=== PATIENT | male | born 1945 | race Hispanic/Latino ===

== ENCOUNTER 2017-12-03 06:07 | Day surgery (SDC) | payer MEDICARE ==
[2017-12-01 12:39] VITALS: BMI 39.2
[2017-12-03 06:50] LABS: BASO # 0.02 K/mm3 (0.0-2.0); BASO % 0.2 % (0.0-3.0); EOS # 0.2 (0.0-0.7); EOS % 2.3 % (1.5-5.0); GRAN # 5.52 (1.4-6.5); GRAN % 67.6 % (50.0-68.0); HEMOGLOBIN 8.7 g/dL (14.0-18.0); LYMPH # 1.8 (1.2-3.4); LYMPH % 22.3 % (22.0-35.0); MEAN CELL VOLUME 59.7 fl (80.0-105.0); MEAN CORPUSCULAR HEMOGLOBIN 18.2 pg (25.0-35.0); MEAN CORPUSCULAR HGB CONC 30.4 g/dl (31.0-37.0); MONO # 0.6 (0.1-0.6); MONO % 7.6 % (1.0-6.0); PLATELET COUNT 193 10^3/uL (120.0-450.0); RBC 4.79 10^6/uL (3.5-6.1); RED CELL DISTRIBUTION WIDTH 17.6 % (11.5-14.5); WHITE BLOOD COUNT 8.2 10^3/ul (4.5-11.0)
[2017-12-03 07:01] LABS: CALCIUM 8.9 mg/dL (8.4-10.5)
[2017-12-03 07:22] LABS: INR 1.09 (0.93-1.08); PARTIAL THROMBOPLASTIN TIME 30.1 Seconds (25.1-36.5); PROTHROMBIN TIME 12.5 SECONDS (9.4-12.5)
[2017-12-03 07:26] VITALS: RESP 18
[2017-12-03] MEDS ORDERED: Lidocaine 2% Inj (20ml) ONE (08:42)
[2017-12-03] MEDS ORDERED: Midazolam 2 MG/2 ML VIAL ONE ×2 (08:42→09:04)
[2017-12-03] MEDS ORDERED: Iohexol 350mgl/ml 50 ML ONE (08:43)
[2017-12-03] MEDS ORDERED: Iodixanol 320 MG/ML 200 ML BOTTLE IV ONE (08:43)
[2017-12-03] MEDS ORDERED: Heparin 2,000 ML IV ONE (08:43)
[2017-12-03] MEDS ORDERED: Iodixanol 320 MG/ML 100 ML BOTTLE IV ONE (08:43)
[2017-12-03] MEDS ORDERED: Iodixanol 320 mg/ml 150 ml Bottle IV ONE (08:51)
[2017-12-03 10:14] VITALS: TEMP 97.4
[2017-12-03] MEDS ORDERED: Sodium Chloride 0.9% 1,000 ML IV SCH (10:15)
--- NOTE | 2017-12-03 11:26 | CARDCATH ---
PROCEDURE DATE: 12/03/2017 HISTORY: The patient is a 71-year-old male who was found to have critical aortic stenosis on an echocardiogram. The patient has previous hypertension as well as history of PTCA and stent in the past. He experiences exertional shortness of breath. No chest pain noted. Because of this, cardiac catheterization was recommended. PROCEDURE: Left heart catheterization with coronary arteriography, left ventriculogram, supra-aortic valvular injection as well as hemodynamic data were recorded. The right femoral artery was cannulated with a 6-Bul[place] sheath. There were no complications. I performed moderate sedation, which included the presence of an independent trained observer that assisted in monitoring the patient's level of consciousness and physiologic status. After administration of fentanyl and Versed, my intra service time was 30 minutes. The findings on catheterization include a hemodynamic data, which revealed [id number] gradient across the aortic valve of 45 mmHg. Supra-aortic valvular injection revealed no aortic insufficiency. Left ventriculogram was viewed in the GONZALEZ projection. In the GONZALEZ projection, LV function is normal with an ejection fraction of 60%. His coronary anatomy revealed a right dominant circulation. The RCA revealed diffuse atherosclerosis without critical lesions. The left main artery was unremarkable. The LAD revealed diffuse intimal irregularities with a patent stent in the proximal LAD. The circumflex artery and obtuse marginal branches were free of significant disease. Angio-Seal was used to close the femoral artery site. The patient tolerated the procedure well. In summary, the procedure revealed critical aortic stenosis. Echocardiogram valve area was 0.7 cm2. Cardiac catheterization qden-ul-tzcj gradient was approximately 45 mmHg. His coronary anatomy revealed a patent stent in the proximal LAD. No AI was noted. LV function is normal with an EF of 60%. Given these findings, the patient will be referred to [facility] for TAVR of the aortic valve. Ruslan Witt MD
[2017-12-03 12:02] VITALS: O2SAT 95
[2017-12-03 14:13] VITALS: BP 109/60; PULSE 58
--- NOTE | 2017-12-03 16:15 | CARD ---
APPROVED REPORT EKG Measurement Heart [id number] <Conclusion> Sinus bradycardia with 1st degree AV block Right bundle branch block NSSTW changes
== END 2017-12-03 15:30 | disposition home or self-care (01) ==
LOC: CATH 06:07
PROVIDERS: ATTEND Internal Medicine Cardiovascular Disease
DX: I35.0 Nonrheumatic aortic (valve) stenosis (principal); I25.10 Atherosclerotic heart disease of native coronary artery without angina pectoris; I10 Essential (primary) hypertension; I44.0 Atrioventricular block, first degree; I45.10 Unspecified right bundle-branch block; Z95.5 Presence of coronary angioplasty implant and graft
CPT/HCPCS: 36415; 80048; 85025; 85610; 85730; 86850; 86900; 93005; 93458; 93567; 99152; 99153; C1769 ×2; C2629; J1644; J2250; J3010; J7030 ×2; Q9966